=== PATIENT | female | born 1985 | race Caucasian/White ===

== ENCOUNTER 2017-01-15 00:15 | Inpatient (IN) | payer OTHER ==
[2017-01-15] MEDS ORDERED: ACETAMINOPHEN 650 MG SUPP.RECT PR PRN (00:18)
[2017-01-15] MEDS ORDERED: DIBUCAINE 1% OINTMENT 28 GM TP PRN (00:18)
[2017-01-15] MEDS ORDERED: ACETAMINOPHEN WITH CODEINE #3 TABLET PO PRN ×2 (00:18)
[2017-01-15] MEDS ORDERED: DIPH/PERTUSS(ACELL)/TETANUS VAC/PF 0.5 ML SYR (>=10YO) IM PRN (00:18)
[2017-01-15] MEDS ORDERED: OXYTOCIN/NORMAL SALINE 1,000 ML IV PRN (00:18)
[2017-01-15] MEDS ORDERED: PROMETHAZINE HCL INJ 25 MG/1 ML VIAL IV PRN (00:18)
[2017-01-15] MEDS ORDERED: PROMETHAZINE HCL 25 MG SUPP.RECT PR PRN (00:18)
[2017-01-15] MEDS ORDERED: GLYCERIN/WITCH HAZEL LEAF 1 EACH MED..PAD TP PRN (00:18)
[2017-01-15] MEDS ORDERED: BENZOCAINE/MENTHOL AEROSOL SPRAY 56 ML TOP PRN (00:18)
[2017-01-15] MEDS ORDERED: ZOLPIDEM TARTRATE 5 MG TABLET PO PRN (00:18)
[2017-01-15] MEDS ORDERED: ACETAMINOPHEN 325 MG TABLET PO PRN (00:18)
[2017-01-15] MEDS ORDERED: NA PHOS,M-B/NA PHOS,DI-BA (ADULT) 133 ML ENEMA PR PRN (00:18)
[2017-01-15] MEDS ORDERED: PROMETHAZINE HCL 25 MG TABLET PO PRN (00:18)
[2017-01-15] MEDS ORDERED: MAGNESIUM HYDROXIDE SUSP 30 ML UDCUP PO PRN (00:18)
[2017-01-15] MEDS ORDERED: PSEUDOEPHEDRINE HCL 30 MG TABLET PO PRN (00:18)
[2017-01-15] MEDS ORDERED: DIPHENHYDRAMINE HCL 25 MG CAPSULE PO PRN (00:18)
[2017-01-15] MEDS ORDERED: MEASLES,MUMPS&RUBELLA VACC/PF 0.5 ML VIAL SUBCUT PRN (00:18)
[2017-01-15] MEDS ORDERED: MISOPROSTOL 0.2 MG TABLET ONE (00:26)
[2017-01-15] MEDS ORDERED: LIDOCAINE 1% INJ-PF (10 MG/ML) 30 ML SDV ONE (00:26)
[2017-01-15] MEDS ORDERED: OXYTOCIN/NORMAL SALINE 20 UNIT/1,000 ML RTUINJ ONE (00:26)
[2017-01-15] MEDS ORDERED: RINGERS SOLUTION,LACTATED 1,000 ML IV PRN (00:28)
[2017-01-15 00:54] LABS: ABSOLUTE BASOPHILS # (AUTO) 0.1 10^3/uL (0.0-0.2); ABSOLUTE LYMPHOCYTES (AUTO) 1.5 10^3/uL (0.5-4.7); ABSOLUTE MONOCYTES (AUTO) 0.6 10^3/uL (0.1-1.4); ABSOLUTE NEUT (AUTO) 15.2 10^3/uL (1.7-8.2); BASOPHILS % (AUTO) 0.5 % (0-2); EOSINOPHILS % (AUTO) 0.2 % (0-6); HEMATOCRIT 38.1 % (36.0-47.0); HEMOGLOBIN 12.4 g/dL (12.0-15.5); HGB HCT DIFFERENCE -0.9; LYMPHOCYTES % (AUTO) 8.8 % (13-45); MEAN CORPUSCULAR HEMOGLOBIN 27.4 pg (27.0-33.4); MEAN CORPUSCULAR HGB CONC 32.7 g/dL (32.0-36.0); MEAN CORPUSCULAR VOLUME 84 fl (80-97); MONOCYTES % (AUTO) 3.4 % (3-13); RED BLOOD COUNT 4.54 10^6/uL (3.72-5.28); RED CELL DISTRIBUTION WIDTH 16.4 % (11.5-14.0); SEGMENTED NEUTROPHILS % (AUTO) 87.1 % (42-78); WHITE BLOOD COUNT 17.4 10^3/uL (4.0-10.5)
--- NOTE | 2017-01-15 01:36 | Delivery Summary ---
Del Sum A-C Datetime Report Generated by CPN: 01/15/2017 01:36 DELIVERY PERSONNEL DELIVERY PERSONNEL: [phone] Delivery Doctor:: Robby Kirk DO for repair Labor and Delivery Nurse:: Rosie De La Fuente RN Nursery Nurse:: Rach Gerbre RN Additional Personnel: : EMS staff performed delivery MATERNAL INFORMATION Delivery Anesthesia: None Medications After Delivery: Pitocin Bolus-Please Comment; Pitocin Drip 20 Units/1000ml NSS Meds After Delivery Comment: NS with Pitocin 20 units/Liter IVF bolus Maternal Complications: Precipitous Labor (<3hrs); Other Other Maternal Complications: Delivered at home via EMS and arrived on unit post delivery of placenta Provider Comments: Term of viable male by EMS enroute to hospital Placenta delievered by EMS [employer] LABOR SUMMARY EDC: 01/31/2017 00:00 No. Babies in Womb: 1 Attempted: No Labor Anesthesia: None LABOR INFORMATION Reason for Induction: Not Applicable Onset of Labor: 01/14/2017 21:00 Oxytocin: N/A Group B Beta Strep: positive on urine September 2016 Antibiotics # of Doses: 0 Steroids Given: None Reason Steroids Not Administered: Not Applicable MEMBRANES Membranes Rupture Method: Spontaneous Rupture of Membranes: 01/14/2017 23:40 Length of Rupture (hr): 0.25 Amniotic Fluid Color: Clear STAGES OF LABOR Stage 3 hr: 0 Stage 3 min: 5 Total Time in Labor hr: 3 Total Time in Labor min: 0 VAGINAL DELIVERY Episiotomy: None Laceration Extension: First Degree Laceration Type: Perineal Laceration Repair: Yes Laceration Repair Note: repaired with 2-0 chromic in usual fashion with good hemostasis Sponge Count Correct: N/A Sharps Count Correct: Yes CSECTION DELIVERY Primary Indication: N/A Secondary Indication: N/A CSection Incidence: N/A Labor: N/A CSection Incision: N/A BABY A INFORMATION Delivery Date/Time: 01/14/2017 23:55 Method of Delivery: Vaginal Born in Route : Yes : N/A Forceps: N/A Vacuum Extraction: N/A Shoulder Dystocia : No PRESENTATION/POSITION BABY A Presentation: Cephalic Cephalic Presentation: Vertex Vertex Position: unknown delivered by EMS Breech Presentation: N/A PLACENTA INFORMATION BABY A Placenta Delivery Time : 01/15/2017 00:00 Placenta Method of Delivery: Spontaneous Placenta Status: Delivered SCORES BABY A Heart Rate 20 min: >100 bpm Resp Effort 20 min: Good Cry Reflex Irritability 20 min: Cough or Sneeze or Pulls Away Muscle Tone 20 min: Active Motion Color 20 min: Body [place], Extremities Blue Resuscitation Effort 20 min: N/A SCORE 20 MIN: 9 INFANT INFORMATION BABY A Gestational Age at Delivery: 37.4 Gestational Status: Early Term- 37- 38.6 Weeks Infant Outcome : Liveborn Condition : Stable Sex: Male IDENTIFICATION BABY A Infant Verification Date/Time: 01/15/2017 00:47 ID Band Number: [id number] Mother's Name Verified: Yes Infant RN Verifying Infant: RN Abby Additional Verifying Personnel: RN Melanik WEIGHT/LENGTH BABY A Birthweight (gm): 3255 Weight (lb): 7 Infant Weight (oz): 3 CORD INFORMATION BABY A No. Cord Vessels: 3 Nuchal Cord : N/A Cord Blood Taken: No-Annotate- delivery by EMS, upon arrival cord was clamped and cut and placenta delivered Suction: Mouth; Nose ASSESSMENT BABY A Complications: None Physical Findings at Delivery: Within Normal Limits Infant Respirations: Appears Normal Skin to Skin: Yes Care By: RN Gerber Transferred To: Remains with Mother BABY B INFORMATION : N/A SIGNATURES Signature: with User ID: [email or web address]
--- NOTE | 2017-01-15 02:46 | Admission Physical ---
Datetime Report Generated by CPN: 01/15/2017 02:46 CURRENT ADMISSION Chief Complaint: Other Chief Complaint Other: of Term Infant by EMS Indication for Induction: Not Applicable Admit Plan: Admit to Unit ALLERGIES Medication Allergies: No Medication Allergies: No Known Allergies (01/15/2017) Latex: No Latex Allergies OBSTETRICAL HISTORY EDC: 01/31/2017 00:00 : 8 Para: 3 Term: 3 : 0 SAB: 3 IAB: 1 Ectopic: 0 Livin Cesareans: 0 VBACs: 0 Multiple Births: 0 Gestational Diabetes: No Rh Sensitization: No Incompetent Cervix: No DEEPTI: No Infertility: No ART Treatment: No Uterine Anomaly: No IUGR: No Hx Previous C/S: No Macrosomia: No Hx Loss/Stillborn: No PIH: No Hx : No Placenta Previa/Abruption: No Depression/PP Depression: No PTL/PROM: No Post Hemorrhage: No Current Procedures: Ultrasound Obstetrical History Comments: anti E pregnancies per records. Records states but only 5 pregnancies listed 2005- 2007- , female, 39 weeks, 23 hours in labor 2008- , female, 39 weeks, 4 hours in labor 2010- , female, 39 weeks, 5 hours in labor current delivered in route to hospital, has anti E, Late to care, eccentric cord presentation on ultrasound SEE RECORDS Alcohol: No Marijuana : No Cocaine: No Other Illicit Drugs: No Cigarettes: Never Smoker. 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2, abdnormal pap smear, cryo afer abnormal pap, ovarian cysts, fracture of left wrist at age 13, anemia in the past at age 11, seasonal allergies, multiple utis, has Anti E and was receiving monthly titers INFECTIOUS HISTORY Gonorrhea: No Genital Herpes: No Chlamydia: No Tuberculosis: No Syphilis: No Hepatitis: No HIV/AIDS Exposure: No Rash or Viral Illness: No HPV: Yes Infectious History Comments: HPV positive on testing per records in the past but then negative on 09/2016 PHYSICAL EXAM General: Normal HEENT: Normal Neurologic: Normal Thyroid: Deferred Heart: Normal Lungs: Normal Breast: Deferred Back: Normal Abdomen: Normal Genitourinary Exam: Normal Extremities: Normal DTRs: Normal Pelvic Type: Adequate Vital Signs: Reviewed; Within Normal Limits FETUS A EGA: 37.5 Admit Comment: Te[place] by EMS enroute to hospital PLANS FOR LABOR AND DELIVERY Feeding Preference: Breast Benefit of Breast Feed Discussed: Yes Circumcision: Yes INFORMED CONSENT Signature: with User ID: [email or web address]
[2017-01-15] MEDS: IBUPROFEN 800 MG TABLET PO SCH ×3 (05:59→19:47)
[2017-01-15 06:31] LABS: CHLAM PCR NOT DETECTED (NOT DETECT)
--- NOTE | 2017-01-15 09:03 | PDOC PROGRESS REPORT ---
Subjective-OB Subjective: Post Delivery Day:1 32 year old. Denies any needs at this time, states pain is well controlled, lochia is stable, voiding without difficulty, delivered in the ambulance. Physical Exam (OB) Vital Signs: Temp Pulse Resp BP Pulse Ox 98.2 F 69 16 102/57 L 98 01/15/17 07:47 01/15/17 07:47 01/15/17 07:47 01/15/17 07:47 01/15/17 07:47 Intake & Output 01/14/17 01/15/17 01/16/17 06:59 06:59 06:59 Weight 93.894 kg - Lochia Lochia Amount: Small 10-25 ml Lochia Color: Rubra/Red - Abdomen Description: Soft, Round Hernia Present: No Stool: No Fundal Description: Firm Fundal Height: u/u - u/2 Objective-Diagnostic Laboratory: 01/15/17 00:40 01/15/17 01/15/17 00:40 00:40 WBC 17.4 H RBC 4.54 Hgb 12.4 Hct 38.1 MCV 84 MCH 27.4 MCHC 32.7 RDW 16.4 H Plt Count 178 Seg Neutrophils % 87.1 H Lymphocytes % 8.8 L Monocytes % 3.4 Eosinophils % 0.2 Basophils % 0.5 Absolute Neutrophils 15.2 H Absolute Lymphocytes 1.5 Absolute Monocytes 0.6 Absolute Eosinophils 0.0 Absolute Basophils 0.1 Blood Type O POSITIVE Antibody Screen POSITIVE Assessment and Plan(PN) - Assessment and Plan (1) Vaginal delivery Is this a current diagnosis for this admission?: YesPlan: routine pp care - Time Spent with Patient Time with patient: Less than 15 minutes Critical Time spent with patient: Less than 15 minutes Medications reviewed and adjusted accordingly: Yes - Disposition Anticipated Discharge: Home Within: within 48 hours
[2017-01-15] MEDS: PRENATAL VITAMIN W-O CA NO5/FE FUMARATE/FA CAPSULE PO SCH (09:21)
[2017-01-15] MEDS: FERROUS SULFATE 325 MG TABLET PO SCH ×2 (09:21→18:22)
[2017-01-15] MEDS: DOCUSATE SODIUM 100 MG CAPSULE PO SCH ×2 (09:22→18:21)
[2017-01-15] MEDS: FAMOTIDINE 20 MG TABLET PO SCH ×2 (09:22→21:04)
[2017-01-15] MEDS: SENNOSIDES/DOCUSATE 8.6-50 MG 1 EACH TABLET PO SCH (09:22)
[2017-01-16] MEDS: IBUPROFEN 800 MG TABLET PO SCH ×2 (05:48→13:50)
--- NOTE | 2017-01-16 09:09 | PDOC DISCHARGE SUMMARY ---
Final Diagnosis Discharge Date: 01/16/17 - Final Diagnosis (1) Vaginal delivery Is this a current diagnosis for this admission?: Yes Discharge Data - Discharge Medication Home Medications: Docusate Sodium [Colace 100 mg Capsule] 100 mg PO BID #60 capsule 01/16/17 Ibuprofen [Motrin 800 mg Tablet] 800 mg PO Q8 #60 tablet 01/16/17 Gestational Age: 37.4 Reason(s) for Admission: Other - s/p in EMS Procedures: None Intrapartum Procedure(s): Other - vaginal lac repair Complication(s): Laceration-Vaginal Laceration-Degree: 1st - Data Baby 1 Male Weight: 3255 kg Home with Mother: Yes Complications: Yes - gbs + un tx, delivered by ems - Diagnosis Test Laboratory: Temp Pulse Resp BP Pulse Ox 97.8 F 67 16 110/63 100 01/16/17 07:54 01/16/17 07:54 01/16/17 07:54 01/16/17 07:54 01/16/17 07:54 01/15/17 00:40 RBC 4.54 Hgb 12.4 Hct 38.1 - Discharge information/Instructions Discharge Activity: Activity As Tolerated, Pelvic Rest, No tub bath Discharge Diet: Regular Disposition: HOME, SELF-CARE Follow up with: [facility] in: 4, Weeks
[2017-01-16] MEDS: SENNOSIDES/DOCUSATE 8.6-50 MG 1 EACH TABLET PO SCH (09:18)
[2017-01-16] MEDS: DOCUSATE SODIUM 100 MG CAPSULE PO SCH ×2 (09:18→17:02)
[2017-01-16] MEDS: FAMOTIDINE 20 MG TABLET PO SCH (09:18)
[2017-01-16] MEDS: FERROUS SULFATE 325 MG TABLET PO SCH ×2 (09:18→17:02)
[2017-01-16] MEDS: PRENATAL VITAMIN W-O CA NO5/FE FUMARATE/FA CAPSULE PO SCH (09:18)
[2017-01-16 20:02] VITALS: BP 108/66
== END 2017-01-16 20:41 | disposition home or self-care (01) | DRG 775 ==
LOC: LR 00:15 → 2S 02:45
PROVIDERS: ADMIT Obstetrics & Gynecology; ATTEND Obstetrics & Gynecology
PROC: 0HQ9XZZ Repair Perineum Skin, External Approach (ICD-10-PCS; principal; 2017-01-15)
DX: O70.0 First degree perineal laceration during delivery (principal); Z37.0 Single live birth; O99.824 Streptococcus B carrier state complicating childbirth; Z3A.37 37 weeks gestation of pregnancy
CPT/HCPCS: 36415; 85025; 86592; 86850; 86870; 86900; 86901; 87491; 87591; J2590; J3490